=== PATIENT | female | born 2000 | race Caucasian/White ===

== ENCOUNTER 2025-06-28 11:50 | Emergency (ER) | payer MEDICAID | END 2025-06-28 12:58 | disposition left against medical advice (07) | LOC: ER 11:51 | DX: N19 Unspecified kidney failure (principal); Z53.21 Procedure and treatment not carried out due to patient leaving prior to being seen by health care provider ==

== ENCOUNTER 2025-06-28 13:40 | Emergency (ER) | payer MEDICAID ==
[~2025-06-28] VITALS: Ht 165.1 cm; Wt 99.0 kg
[2025-06-28 13:45] VITALS: BP 126/89; PULSE 90; RESP 18; O2SAT 98
== END 2025-06-28 18:33 | disposition left against medical advice (07) ==
LOC: ER 13:40
DX: M54.9 Dorsalgia, unspecified (principal); Z53.21 Procedure and treatment not carried out due to patient leaving prior to being seen by health care provider